=== PATIENT | female | born 1970 | race Caucasian/White ===

== ENCOUNTER 2017-01-30 20:15 | Emergency (ER) | payer OTHER ==
[~2017-01-30] VITALS: Ht 160 cm; Wt 72.5 kg
[2017-01-30 20:19] VITALS: Ht 160 cm; Wt 72.5 kg
[2017-01-30 20:52] LABS: URINE BLOOD (Dip) POC 3+ (NEGATIVE)
[2017-01-30] MEDS ORDERED: KETOROLAC 30 MG INJ IV STA (21:41)
[2017-01-30 22:27] LABS: ADD SCAN DIFF NO
[2017-01-30 22:32] LABS: ABNORMAL IP MESSAGE 1; BASOPHILS % 0.2 % (0.0-2.0); EOSINOPHILS # 0.1 10^3/ul (0.0-0.5); EOSINOPHILS % 1.2 % (0.0-7.0); HEMOGLOBIN 8.1 g/dl (12.0-16.0); LYMPHOCYTES # 3.6 10^3/ul (0.8-2.9); LYMPHOCYTES % 33.6 % (15.0-51.0); MEAN CORPUSCULAR HGB CONC 28.9 g/dl (32.0-37.0); MEAN CORPUSCULAR VOLUME 75.9 fl (82.0-101.0); MEAN PLATELET VOLUME 9.7 fl (7.4-10.4); MONOCYTE # 0.7 10^3/ul (0.3-0.9); MONOCYTES % 6.8 % (0.0-11.0); NEUTROPHIL # 6.2 10^3/ul (1.6-7.5); NEUTROPHILS % 57.9 % (39.0-77.0); PLATELET COUNT 442 10^3/UL (140-415); RED BLOOD COUNT 3.69 10^6/ul (4.20-5.40); RED CELL DISTRIBUTION WIDTH 16.3 % (11.5-14.5); WHITE BLOOD COUNT 10.6 10^3/ul (4.8-10.8)
[2017-01-30 22:42] LABS: ADD UMIC YES; UR ASCORBIC ACID NEGATIVE (NEGATIVE); UR BILIRUBIN (Dip) NEGATIVE (NEGATIVE); UR BLOOD (Dip) 3+ mg/dL (NEGATIVE); UR CLARITY CLEAR (CLEAR); UR COLOR STRAW (YELLOW); UR GLUCOSE (Dip) NEGATIVE (NEGATIVE); UR KETONES (Dip) NEGATIVE (NEGATIVE); UR LEUKOCYTE ESTERASE (Dip) 2+ Leu/ul (NEGATIVE); UR NITRITE (Dip) NEGATIVE (NEGATIVE); UR RBC 1 /HPF (0-5); UR SPECIFIC GRAVITY (Dip) 1.001 (1.003-1.030); UR TOTAL PROTEIN (Dip) NEGATIVE (NEGATIVE); UR UROBILINOGEN (Dip) NEGATIVE (NEGATIVE)
[2017-01-30 23:01] LABS: ALBUMIN 4.3 g/dl (3.3-4.9); ALBUMIN/GLOBULIN RATIO 1.16; BILIRUBIN,INDIRECT 0.2 mg/dl (0-1.1); BILIRUBIN,TOTAL 0.2 mg/dl (0.2-1.3); CALCIUM 9.1 mg/dl (8.4-10.2); CREATININE 0.59 mg/dl (0.44-1.00); POTASSIUM 4.1 mmol/L (3.5-5.1)
--- NOTE | 2017-01-30 23:19 | RADRPT ---
PROCEDURE: CT abdomen and pelvis without contrast. CLINICAL INDICATION: Hematuria and flank pain TECHNIQUE: CT scan of the abdomen and pelvis without contrast was performed. Sagittal and coronal reformatted images were obtained from the axial source images. CTDI = 11.35 mGy; DLP = 613.76 mGy-c m COMPARISON: None. FINDINGS: Visualized lower thorax: The lung bases are clear. There is no evidence for pleural effusion. Liver, gallbladder, pancreas and spleen: The liver is normal and size, contour and attenuation. Th ere is no evidence for a liver mass or ductal dilatation. Findings are compatible with prior cholec ystectomy. No common bile duct abnormality is demonstrated. The pancreas is unremarkable. The spl een is normal in size. Adrenal glands and genitourinary system: The adrenal glands are normal bilaterally. The kidneys are normal and size, contour and attenuation with no evidence for masses, calculi or hydronephrosis. T he ureters are unremarkable. No urinary bladder abnormality is demonstrated. The uterus and adnexa are unremarkable. There is no evidence of free fluid in the cul-de-sac. Gastrointestinal system: The stomach is normal in caliber with no abnormality of significance. The small bowel is normal in caliber with no ileus, obstruction or wall thickening. The appendix and s urrounding fat are within the limits of normal. The colon shows no evidence for wall thickening or acute abnormality. There is no evidence for colitis or diverticulitis. Peritoneum, retroperitoneum, lymph nodes and vessels: The abdominal aorta is normal in caliber. The re is no evidence for atherosclerotic calcification. The inferior vena cava is unremarkable. There is no evidence for adenopathy or mass. There is no ascites. Osseous structures and musculoskeletal findings: There is no fracture, lytic or blastic lesion. Fa cet arthropathy with vacuum phenomenon L4-5 is noted with trace anterolisthesis at this level. Post operative scarring in the subcutaneous fat of the anterior abdominal wall is present. RPTAT:HJJR IMPRESSION: 1. No evidence of urinary tract calculi or hydronephrosis. 2. An explanation for hematuria is not detected. 3. Facet arthropathy at L4-5 with associated trace anterolisthesis. 4. Cholecystectomy changes with postoperative findings of the anterior abdominal wall. 5. Normal appendix. Virgilio Roca, Physician Date Time Electronically viewed and signed by Virgilio Roca, Physician on 01/30/2017 23:18 JR/
[2017-01-30] MEDS ORDERED: NITR-58 PO (23:36)
[2017-01-30] MEDS ORDERED: IBUP-1542 PO (23:37)
[2017-01-30] MEDS ORDERED: FER325 PO (23:38)
[2017-01-30] MEDS ORDERED: DOCU-144 PO (23:39)
[2017-01-30] MEDS ORDERED: ACET500C5 PO (23:40)
--- NOTE | 2017-01-30 23:48 | ERD ---
ER Documentation Chief Complaint Date/Time DATE: 01/30/17 TIME: 23:42 Chief Complaint painful urination, back pain x 3 days HPI Patient is a 46-year-old female presents to the emergency department for pain with urination and lower back pain 3 days. She states that she has burning pain with urinating. Patient also does report frequency however she denies any hematuria. Patient denies any fevers, chills, nausea, vomiting. Patient states that her lower back pain does radiate into her left flank region. Patient reports difficulty sitting due to pain. Patient denies any saddle anesthesia, urinary incontinence, stool incontinence, rectal bleeding, recent falls or trauma. Patient denies previous history of kidney stones. Patient denies any weakness or dizziness. ROS All systems reviewed and are negative except as per history of present illness. Medications Home Meds Active Scripts Acetaminophen* (Tylophen*) 500 Mg Capsule, 1 CAP PO Q6H Y for PAIN AND OR ELEVATED TEMP, #20 CAP Prov:MEGAN SORIANO PA-C 01/30/17 Docusate Sodium* (Colace*) 100 Mg Capsule, 100 MG PO TID, #30 CAP Prov:MEGAN SORIANO PA-C 01/30/17 Ferrous Sulfate* (Ferrous Sulfate*) 325 Mg Tabec, 325 MG PO BID, #60 TAB Prov:MEGAN SORIANO PA-C 01/30/17 Nitrofurantoin Monohyd Macrocr* (Macrobid*) 100 Mg Capsr, 100 MG PO BID for 5 Days, CAP Prov:MEGAN SORIANO PA-C 01/30/17 Discontinued Scripts Ibuprofen* (Motrin*) 600 Mg Tab, 600 MG PO Q6, #15 TAB Prov:MEGAN SORIANO PA-C 01/30/17 Allergies Allergies: Coded Allergies: No Known Allergy (Unverified , 01/30/17) PMhx/Soc Medical and Surgical Hx: pt denies Medical Hx Hx Alcohol Use: No Hx Substance Use: No Hx Tobacco Use: No Smoking Status: Never smoker FmHx Family History: No diabetes Physical Exam Vitals Vital Signs Date Time Temp Pulse Resp B/P Pulse Ox O2 Delivery O2 Flow Rate FiO2 01/30/17 20:19 98.3 88 20 138/72 100 Physical Exam GENERAL: Well-developed, well-nourished female. Appears in no acute distress. Speaking in full sentences HEAD: Normocephalic, atraumatic. EYES: Pupils are equally reactive bilaterally. EOMs grossly intact. No conjunctival erythema. ENT: Moist mucous membranes. No uvula deviation. No kissing tonsils. NECK: Supple. No meningismus. Normal range of motion of the neck. LUNG: Clear to auscultation bilaterally. No rhonchi, wheezing, rales or coarse breath sounds. HEART: Regular rate and rhythm. No murmurs, rubs or gallops. ABDOMEN: Soft and nondistended. Tender to palpation in the suprapubic region. Positive bowel sounds in all four quadrants. No rebound tenderness, no guarding. (-) McBurney's point tenderness. Left CVA tenderness. BACK: No midline tenderness. EXTREMITIES: Equal pulses bilaterally. No peripheral clubbing, cyanosis or edema. No unilateral leg swelling. NEUROLOGIC: Alert and oriented. Moving all four extremities without any difficulty. Normal speech. Steady gait. SKIN: Normal color. Warm and dry. No rashes or lesions. Result Diagram: 01/30/17 2215 01/30/17 2215 Results 24 hrs Laboratory Tests Test 01/30/17 20:57 01/30/17 22:15 Bedside Urine pH (LAB) 6.0 Bedside Urine Protein (LAB) Negative Bedside Urine Glucose (UA) Negative Bedside Urine Ketones (LAB) Negative Bedside Urine Blood 3+ Bedside Urine Nitrite (LAB) Negative Bedside Urine Leukocyte Esterase (L 1+ White Blood Count 10.610^3/ul Red Blood Count 3.6910^6/ul Hemoglobin 8.1g/dl Hematocrit 28.0% Mean Corpuscular Volume 75.9fl Mean Corpuscular Hemoglobin 22.0pg Mean Corpuscular Hemoglobin Concent 28.9g/dl Red Cell Distribution Width 16.3% Platelet Count 76358^3/UL Mean Platelet Volume 9.7fl Neutrophils % 57.9% Lymphocytes % 33.6% Monocytes % 6.8% Eosinophils % 1.2% Basophils % 0.2% Nucleated Red Blood Cells % 0.0/100WBC Neutrophils # 6.210^3/ul Lymphocytes # 3.610^3/ul Monocytes # 0.710^3/ul Eosinophils # 0.110^3/ul Basophils # 0.010^3/ul Nucleated Red Blood Cells # 0.010^3/ul Urine Color STRAW Urine Clarity CLEAR Urine pH 6.0 Urine Specific [place] 1.001 Urine Ketones NEGATIVEmg/dL Urine Nitrite NEGATIVEmg/dL Urine Bilirubin NEGATIVEmg/dL Urine Urobilinogen NEGATIVEmg/dL Urine Leukocyte Esterase 2+Cait/ul Urine Microscopic RBC 1/HPF Urine Microscopic WBC 2/HPF Urine Hemoglobin 3+mg/dL Urine Glucose NEGATIVEmg/dL Urine Total Protein NEGATIVEmg/dl Sodium Level 144mmol/L Potassium Level 4.1mmol/L Chloride Level 103mmol/L Carbon Dioxide Level 24mmol/L Anion Gap 21 Blood Urea Nitrogen 7mg/dl Creatinine 0.59mg/dl Glucose Level 121mg/dl Calcium Level 9.1mg/dl Total Bilirubin 0.2mg/dl Direct Bilirubin 0.00mg/dl Indirect Bilirubin 0.2mg/dl Aspartate Amino Transf (AST/SGOT) 19IU/L Alanine Aminotransferase (ALT/SGPT) 35IU/L Alkaline Phosphatase 79IU/L Total Protein 8.0g/dl Albumin 4.3g/dl Globulin 3.70g/dl Albumin/Globulin Ratio 1.16 Current Medications Medications (Trade) Dose Ordered Sig/[place] Route PRN Reason Start Time Stop Time Status Last Admin Dose Admin Ketorolac Tromethamine (Toradol) 30 mg ONCE STAT IV 01/30/17 21:41 01/30/17 21:43 DC 01/30/17 22:20 Procedures/MDM ED COURSE: The patient was stable throughout ED course. I kept the patient and/or family informed of laboratory and diagnostic imaging results throughout the ED course. DIAGNOSTIC IMAGING: Read by radiologist. Patient: PENNIE VICENTE : 1970 Age: 46 Sex: F [id number] [id number] DOS: 01/30/17 2141 Ordering MD: MEGAN SORIANO PA-C Location: [facility] Room/Bed: PROCEDURE: CT abdomen and pelvis without contrast. CLINICAL INDICATION: Hematuria and flank pain TECHNIQUE: CT scan of the abdomen and pelvis without contrast was performed. Sagittal and coronal reformatted images were obtained from the axial source images. CTDI = 11.35 mGy; DLP = 613.76 mGy-cm COMPARISON: None. FINDINGS: Visualized lower thorax: The lung bases are clear. There is no evidence for pleural effusion. Liver, gallbladder, pancreas and spleen: The liver is normal and size, contour and attenuation. There is no evidence for a liver mass or ductal dilatation. Findings are compatible with prior cholecystectomy. No common bile duct abnormality is demonstrated. The pancreas is unremarkable. The spleen is normal in size. Adrenal glands and genitourinary system: The adrenal glands are normal bilaterally. The kidneys are normal and size, contour and attenuation with no evidence for masses, calculi or hydronephrosis. The ureters are unremarkable. No urinary bladder abnormality is demonstrated. The uterus and adnexa are unremarkable. There is no evidence of free fluid in the cul-de-sac. Gastrointestinal system: The stomach is normal in caliber with no abnormality of significance. The small bowel is normal in caliber with no ileus, obstruction or wall thickening. The appendix and surrounding fat are within the limits of normal. The colon shows no evidence for wall thickening or acute abnormality. There is no evidence for colitis or diverticulitis. Peritoneum, retroperitoneum, lymph nodes and vessels: The abdominal aorta is normal in caliber. There is no evidence for atherosclerotic calcification. The inferior vena cava is unremarkable. There is no evidence for adenopathy or mass. There is no ascites. Osseous structures and musculoskeletal findings: There is no fracture, lytic or blastic lesion. Facet arthropathy with vacuum phenomenon L4-5 is noted with trace anterolisthesis at this level. Postoperative scarring in the subcutaneous fat of the anterior abdominal wall is present. RPTAT:HJJR IMPRESSION: 1. No evidence of urinary tract calculi or hydronephrosis. 2. An explanation for hematuria is not detected. 3. Facet arthropathy at L4-5 with associated trace anterolisthesis. 4. Cholecystectomy changes with postoperative findings of the anterior abdominal wall. 5. Normal appendix. Physician Nikki Date Time Electronically viewed and signed by Physician Nikki on 01/30/2017 23:18 JR/ CC: MEGAN SORIANO PA-C. PROCEDURES: None. MEDICATIONS GIVEN: Toradol Patient tolerated medication well with no adverse reactions. Patient reported improvement in pain. MEDICAL DECISION MAKING: This is a 46-year-old female presents with dysuria, left-sided flank pain and lower back pain 3 days. Vital signs were reviewed. Patient was afebrile. CBC showed no signs of systemic infection. Patient's hemoglobin level was noted to be 8.1. Patient's hematocrit was noted to be 28. Patient denied any rectal bleeding. CMP showed no evidence of electrolyte abnormalities, severe acidosis , alkalosis, renal failure, or liver disease. Given that patient reported left- sided flank pain and blood in her urine for the first time, CT abdomen and pelvis was obtained. No urinary tract calculi or hydronephrosis was noted. CT scan did show Facet arthropathy at L4-5 with associated trace anterolisthesis. Urinalysis showed 2+ leukocyte esterase. Given these findings, the patient's presentation is most consistent with anemia, facet arthropathy, urinary tract infection vs early pyelonephritis. I have a much lower clinical concern for nephrolithiasis, appendicitis, diverticulitis, constipation, , ectopic , PID, ovarian torsion, or tubo-ovarian abscess. Low suspicion for the patient requiring blood transfusion, given that patient did not appear to be symptomatic, patient denied weakness and dizziness. Patient will need follow up iron panel testing. Unable to rule out malignancy at this time. Patient advised to follow up with her PCP for further management of her symptoms. PRESCRIPTIONS: Macrobid, Tylenol, Colace, iron supplements DISCHARGE: At this time, patient is stable for discharge and outpatient management. Patient was provided with a copy of all blood work and imaging studies obtained today. I have instructed the patient to follow-up with his/her primary care physician in 1-2 days. Patient should repeat UA in 2 weeks. If symptoms persist , patient may need to see a urologist for further examinations and testing. I have instructed the patient to promptly return to the ER at any time for any new or worsening symptoms including increased pain, fever, nausea, vomiting, urinary changes or weakness. The patient and/or family expressed understanding of and agreement with this plan. All questions were answered. Home care instructions were provided. Departure Diagnosis: Primary Impression: UTI (urinary tract infection) Urinary tract infection type: site unspecified Hematuria presence: with hematuria Qualified Code: N39.0 - Urinary tract infection with hematuria, site unspecified Additional Impressions: Anemia Anemia type: unspecified type Qualified Code: D64.9 - Anemia, unspecified type Facet arthropathy, lumbar Condition: Stable Patient Instructions: Understanding Urinary Tract Infections (UTIs) Referrals: [facility] YOU HAVE RECEIVED A MEDICAL SCREENING EXAM AND THE RESULTS INDICATE THAT YOU DO NOT HAVE A CONDITION THAT REQUIRES URGENT TREATMENT IN THE EMERGENCY DEPARTMENT. FURTHER EVALUATION AND TREATMENT OF YOUR CONDITION CAN WAIT UNTIL YOU ARE SEEN IN YOUR DOCTORS OFFICE WITHIN THE NEXT 1-2 DAYS. IT IS YOUR RESPONSIBILITY TO MAKE AN APPOINTMENT FOR FOLOW-UP CARE. IF YOU HAVE A PRIMARY DOCTOR --you should call your primary doctor and schedule an appointment IF YOU DO NOT HAVE A PRIMARY DOCTOR YOU CAN CALL OUR PHYSICIAN REFERRAL HOTLINE AT IF YOU CAN NOT AFFORD TO SEE A PHYSICIAN YOU CAN CHOSE FROM THE FOLLOWING [facility] [address] [facility] [address] [facility] [address] [facility] [address] [facility] [facility] [address]. [facility] [address] [facility]. [facility] YOU HAVE RECEIVED A MEDICAL SCREENING EXAM AND THE RESULTS INDICATE THAT YOU DO NOT HAVE A CONDITION THAT REQUIRES URGENT TREATMENT IN THE EMERGENCY DEPARTMENT. FURTHER EVALUATION AND TREATMENT OF YOUR CONDITION CAN WAIT UNTIL YOU ARE SEEN IN YOUR DOCTORS OFFICE WITHIN THE NEXT 1-2 DAYS. IT IS YOUR RESPONSIBILITY TO MAKE AN APPOINTMENT FOR FOLOW-UP CARE. IF YOU HAVE A PRIMARY DOCTOR --you should call your primary doctor and schedule and appointment IF YOU DO NOT HAVE A PRIMARY DOCTOR YOU CAN CALL OUR PHYSICIAN REFERRAL HOTLINE AT . IF YOU CAN NOT AFFORD TO SEE A PHYSICIAN YOU CAN CHOSE FROM THE FOLLOWING [facility] INSTITUTIONS: [facility] [address] [place] [address] [facility] [address] [place] [address] [facility] + [facility] [address] [place] [address] Additional Instructions: Call your primary care doctor TOMORROW for an appointment during the next 1-2 days.See the doctor sooner or return here if your condition worsens before your appointment time. MEGAN SORIANO PA-C Jan 30, 2017 23:48
== END 2017-01-30 23:47 | disposition home or self-care (01) ==
LOC: FTE 20:15
DX: N39.0 Urinary tract infection, site not specified (principal); D64.9 Anemia, unspecified; M12.88 Other specific arthropathies, not elsewhere classified, other specified site
CPT/HCPCS: 36415; 74176; 80053; 81001; 85025; 96374; J1885; Z7502; 81003

== ENCOUNTER 2018-09-15 14:54 | Emergency (ER) | payer OTHER ==
[~2018-09-15] VITALS: Ht 165.1 cm; Wt 70.0 kg
[~2018-09-15 14:54] MED LIST: ACET500C5 PO; DOCU-144 PO; FER325 PO; NITR-58 PO
[2018-09-15 15:11] VITALS: Ht 165.1 cm; Wt 70.0 kg
[2018-09-15] MEDS ORDERED: SOD CHLORIDE 0.9% 1,000 ML IV STA (15:44)
[2018-09-15] MEDS ORDERED: MECLIZINE 12.5 MG TAB PO ONE (16:00)
[2018-09-15] MEDS ORDERED: FERROUS SULFATE (EC) 325 MG TAB PO ONE (18:30)
--- NOTE | 2018-09-15 18:38 | ERD ---
ER Documentation Chief Complaint Chief Complaint dizziness, RECIO, neck pain X 5 hrs HPI This is a 48-year-old female that presents to the emergency department with no past medical history the presents to the emergency department with dizziness. The patient indicates that the dizziness has been present for roughly 5 hours. She states she feels as though the room is spinning around her. She has a bandlike headache. She states that this is not the worst headache of her life. She feels very weak and indicates that in the past month she has had 3 menstrual cycles. She indicates that she is perimenopausal. She indicates that she has been experiencing a significant amount of bleeding during the menstrual cycle. She indicates that this time however there is no vaginal bleeding. She denies any neck pain or fever. She does indicate that she has had a nonproductive cough for several days. She denies any chest pain or pressure that radiates to the neck arm back or jaw. She denies any abdominal pain or cramping. Indicates she has been evaluated in the past for the heavy vaginal bleeding and has had to take iron pills. She states she has never required a blood transfusion in the past. ROS All systems reviewed and are negative except as per history of present illness. Medications Home Meds Discontinued Scripts Acetaminophen* (Tylophen*) 500 Mg Capsule, 1 CAP PO Q6H PRN for PAIN AND OR ELEVATED TEMP, #20 CAP Prov:MEGAN SORIANO PA-C 01/30/17 Docusate Sodium* (Colace*) 100 Mg Capsule, 100 MG PO TID, #30 CAP Prov:MEGAN SORIANO PA-C 01/30/17 Ferrous Sulfate* (Ferrous Sulfate*) 325 Mg Tabec, 325 MG PO BID, #60 TAB Prov:MEGAN SORIANO PA-C 01/30/17 Nitrofurantoin Monohyd Macrocr* (Macrobid*) 100 Mg Capsr, 100 MG PO BID for 5 Days, CAP Prov:MEGAN SORIANO PA-C 01/30/17 Allergies Allergies: Coded Allergies: No Known Allergy (Unverified , 09/15/18) PMhx/Soc History of Surgery: No Anesthesia Reaction: No Hx Neurological Disorder: No Hx Respiratory Disorders: No Hx Cardiac Disorders: No Hx Psychiatric Problems: No Hx Miscellaneous Medical Probl: No Hx Alcohol Use: No Hx Substance Use: No Hx Tobacco Use: No Smoking Status: Never smoker Physical Exam Vitals Vital Signs Date Temp Pulse Resp B/P (MAP) Pulse Ox O2 O2 Flow FiO2 Time Delivery Rate 09/15/18 68 18 114/59 100 Room Air 18:09 (77) 09/15/18 97.7 79 18 122/71 100 15:11 (88) Physical Exam Constitutional:Well-developed. Well-nourished. HEENT:Normocephalic. Atraumatic.Pupils were equal round reactive to light. Moist mucous membranes.No tonsillar exudates. Conjunctival pallor Neck: No nuchal rigidity. No lymphadenopathy. No posterior cervical spine tenderness or step-offs. Respiratory: Not using accessory muscles of respiration.Lungs were clear to auscultation bilaterally. No rhonchi. No rales. No wheezing. Cardiovascular: Regular rate regular rhythm.No murmurs. No rubs were appreciated.S1, S2 normal. Distal pulses are palpable 2+ bilaterally. GI: Abdomen was soft. Mild suprapubic tenderness. Non Distended. No pulsatile abdominal masses or bruits. No rebound. No guarding. Bowel sounds were present and normal. : Pelvic exam was performed by myself and the patient denied a female employee development manager to be present. There is no endocervical discharge. There is no cervical motion tenderness. No adnexal tenderness. No gross blood present within the vaginal vault. Muscle skeletal: Full range of motion of both the upper and lower extremities bilaterally.Normal muscle tone.No assymetrical calf tenderness or swelling. Skin: Diffuse pallor. No petechia, no purpura. No lesions on the palms or the soles of the feet. No maculopapular rash. NEURO: Patient was alert, awake, orientated x3.No facial droop. Gait observed and normal with no ataxia.Speech had regular rate and rhythm. No focal neurological deficits. Peripheral fatigable nystagmus Result Diagram: 09/15/18 1606 Results 24 hrs Laboratory Tests Test 09/15/18 16:02 09/15/18 16:03 09/15/18 16:06 Bedside Urine pH (LAB) 6.0 Bedside Urine Protein (LAB) Negative Bedside Urine Glucose (UA) Negative Bedside Urine Ketones (LAB) Trace Bedside Urine Blood 1+ Bedside Urine Nitrite (LAB) Negative Bedside Urine Leukocyte Esterase (L Negative POC Beta HCG, Qualitative NEGATIVE White Blood Count 8.4 10^3/ul Red Blood Count 3.84 10^6/ul Hemoglobin 7.2 g/dl Hematocrit 26.2 % Mean Corpuscular Volume 68.2 fl Mean Corpuscular Hemoglobin 18.8 pg Mean Corpuscular Hemoglobin Concent 27.5 g/dl Red Cell Distribution Width 18.9 % Platelet Count 555 10^3/UL Mean Platelet Volume 9.6 fl Immature Granulocytes % 0.200 % Neutrophils % 65.2 % Lymphocytes % 27.8 % Monocytes % 6.3 % Eosinophils % 0.4 % Basophils % 0.1 % Nucleated Red Blood Cells % 0.0 /100WBC Immature Granulocytes # 0.020 10^3/ul Neutrophils # 5.5 10^3/ul Lymphocytes # 2.3 10^3/ul Monocytes # 0.5 10^3/ul Eosinophils # 0.0 10^3/ul Basophils # 0.0 10^3/ul Nucleated Red Blood Cells # 0.0 10^3/ul Prothrombin Time 13.4 Sec Prothrombin Time Ratio 1.0 INR International Normalized Ratio 1.01 Activated Partial Thromboplast Time 28.6 Sec Urine Color YELLOW Urine Clarity CLEAR Urine pH 6.0 Urine Specific Hugo 1.016 Urine Ketones NEGATIVE mg/dL Urine Nitrite NEGATIVE mg/dL Urine Bilirubin NEGATIVE mg/dL Urine Urobilinogen NEGATIVE mg/dL Urine Leukocyte Esterase NEGATIVE Cait/ul Urine Microscopic RBC 6 /HPF Urine Microscopic WBC 1 /HPF Urine Squamous Epithelial Cells FEW /HPF Urine Bacteria FEW /HPF Urine Hemoglobin 1+ mg/dL Urine Glucose NEGATIVE mg/dL Urine Total Protein NEGATIVE mg/dl Troponin I < 0.012 ng/ml Current Medications Medications Dose Sig/[place] Start Time Status Last (Trade) Ordered Route PRN Stop Time Admin Dose Reason Admin Sodium 1,000 ml @ Q1H STAT 09/15/18 DC 09/15/18 Chloride 1,000 mls/hr IV 15:44 09/15/18 15:56 16:43 Meclizine 25 mg ONCE ONCE 09/15/18 DC 09/15/18 HCl PO 16:00 09/15/18 15:54 (Antivert) 16:01 Ferrous 325 mg ONCE ONCE 09/15/18 UNV Sulfate PO 18:30 09/15/18 (Ferrous 18:31 Sulfate (Ec)) Procedures/MDM This patient was seen and evaluated by myself. The patient presented to the emergency department complaining of dizziness. My differential diagnosis included but was not limited to hypovolemia, myocardial infarction, pulmonary embolism, hypoglycemia, hypoxia, anemia, vasovagal episode, hypothyroidism, anxiety, peripheral or central vertigo. The patient was placed on a cardiac cath tech, continuous pulse oximetry and IV access established by nursing staff. Patient was given IV fluids. She was also complaining of vertigo. This appeared to be peripheral versus central vertigo was a CT scan of the head was reviewed by myself there is no intracerebral hemorrhage mass-effect or midline shift. The patient was given Antivert and this resolved. I obtained a 12-lead EKG tracing to rule out for atypical microinfarction. 12 Lead EKG tracing ordered and reviewed by myself showed: Normal sinus rhythm of 75 bpm and no arrhythmia. MN interval normal. QRS duration normal. No ST segment elevation No ST segment depression. No changes consistent with acute ischemia. The patient was anemic with hemoglobin of 7.2. This was a microcytic anemia that could be result of iron deficiency anemia. The patient did have an ultrasound of the pelvis or and reviewed by myself and there is no signs of mass, ovarian torsion or cyst. I indicated the patient that I felt she required follow-up with her WHEELCHAIR RENTAL CLERK to discuss the metrorrhagia. The patient was given ferrous sulfate in the emergency department. Observation Note: Time: 4 hours Family Hx: No Hypertension Evaluation: Multiple exams showed improving symptoms and no evidence of worsening of her symptoms. I did not perform a blood transfusion in the emergency department given that her symptoms had improved and there is no active bleeding at this time. She will be given a prescription of ferrous sulfate and follow-up again with her WHEELCHAIR RENTAL CLERK. The patient was discharged home in fair condition. They were instructed to return to the emergency department at any time if there was any worsening of their condition. The patient stated they would follow up with their PCP in the next 24-48 hours to initiate a suitable medication regimen under the care of their PCP as well as to allow their PCP to monitor any drug reactions. The patient was discharged home with prescriptions after they gave informed consent to the new medication. They were also fully informed by myself on the adverse effects and adverse drug interactions in order to provide adequate safeguards to prevent possible adverse reactions to medications. Departure Diagnosis: Primary Impression: Dizziness Additional Impressions: Peripheral vertigo Laterality: unspecified laterality Qualified Codes: H81.399 - Other per ipheral vertigo, unspecified ear Menorrhagia Menorrahagia type: premenopausal Qualified Codes: N92.4 - Excessive bleeding in the premenopausal period Anemia Anemia type: iron deficiency Iron deficiency anemia type: unspecified iron deficiency Qualified Codes: D50.9 - Iron deficiency anemia, unspecified Condition: Fair KAN RUFF MD Sep 15, 2018 18:38
[2018-09-15] MEDS ORDERED: FER325 PO (18:39)
[2018-09-15 21:04] VITALS: BP 115/72; PULSE 74; RESP 16
== END 2018-09-15 21:06 | disposition home or self-care (01) ==
LOC: E/R 14:54
DX: H81.399 Other peripheral vertigo, unspecified ear (principal); N92.4 Excessive bleeding in the premenopausal period; D50.9 Iron deficiency anemia, unspecified; R40.2142 Coma scale, eyes open, spontaneous, at arrival to emergency department; R40.2362 Coma scale, best motor response, obeys commands, at arrival to emergency department; R40.2252 Coma scale, best verbal response, oriented, at arrival to emergency department
CPT/HCPCS: 36415; 70450; 71045; 76830; 76856; 80053; 81001; 81025; 84484; 85025; 85610; 85730; 93005; J7030; Z7502; Z7610; 81003